=== PATIENT | male | born 1935 | race Caucasian/White ===

== ENCOUNTER → 2024-01-12 10:02 | Outpatient (BNVA) | payer MEDICARE, SELFPAY | PROVIDERS: Referring Provider Anesthesiology; Visit Provider Specialist | DX: G30.9 Alzheimer's disease, unspecified; F02.80 Dementia in other diseases classified elsewhere, unspecified severity, without behavioral disturbance, psychotic disturbance, mood disturbance, and anxiety | CPT/HCPCS: 99204 ==